=== PATIENT | male | born 1975 | race American Indian/Alaskan Native ===

== ENCOUNTER 2017-05-12 13:57 | Emergency (ER) | payer MEDICAID ==
[2017-05-12 14:07] VITALS: BMI 26.4
[2017-05-12 14:12] VITALS: BP 160/84; TEMP 97.8
[2017-05-12] MEDS ORDERED: Tmp-Smz 800 mg-160 mg DS Tab PO STA (14:33)
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
[2017-05-12 15:00] VITALS: PULSE 80; RESP 19; O2SAT 99
== END 2017-05-12 14:59 | disposition home or self-care (01) ==
LOC: ED 13:57
DX: L02.31 Cutaneous abscess of buttock (principal); F17.210 Nicotine dependence, cigarettes, uncomplicated

== ENCOUNTER 2017-10-15 05:40 | Emergency (ER) | payer MEDICAID ==
[2017-10-15 05:41] VITALS: BMI 26.4
[2017-10-15 05:51] VITALS: BP 146/80; PULSE 84; RESP 16; TEMP 98.1
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
[2017-10-15] MEDS ORDERED: Tmp-Smz 800 mg-160 mg DS Tab PO STA (06:00)
[2017-10-15 06:22] VITALS: O2SAT 98
== END 2017-10-15 06:21 | disposition home or self-care (01) ==
LOC: ED 05:40
DX: L03.116 Cellulitis of left lower limb (principal); F17.210 Nicotine dependence, cigarettes, uncomplicated

== ENCOUNTER 2018-01-08 20:12 | Emergency (ER) | payer MEDICAID ==
[2018-01-08 20:14] VITALS: BMI 26.4
[2018-01-08] MEDS ORDERED: cefTRIAXone (Rocephin) 250 mg Inj IM STA (21:08)
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
[2018-01-08] MEDS ORDERED: Lidocaine 1% 5ml Abboject ONE (21:24)
[2018-01-08 22:36] VITALS: BP 135/84; PULSE 82; RESP 18; O2SAT 100
== END 2018-01-08 21:40 | disposition home or self-care (01) ==
LOC: ED 20:12
DX: N34.2 Other urethritis (principal); F17.210 Nicotine dependence, cigarettes, uncomplicated
CPT/HCPCS: 87491; 87591; 96372; 99284; J0696

== ENCOUNTER 2018-07-07 23:55 | Emergency (ER) | payer MEDICAID ==
[2018-07-08 00:39] VITALS: BMI 28.4
[2018-07-08 00:42] VITALS: TEMP 97.8
[2018-07-08] MEDS ORDERED: cefTRIAXone (Rocephin) 250 mg Inj IM STA (00:53)
[2018-07-08 01:13] LABS: URINE BILIRUBIN NEGATIVE (NEGATIVE); URINE BLOOD NEGATIVE (NEGATIVE); URINE GLUCOSE (UA) NEGATIVE (NEGATIVE); URINE LEUKOCYTE ESTERASE SMALL Leu/uL (NEGATIVE); URINE PROTEIN NEGATIVE mg/dL (<30 mg/dL); URINE UROBILINOGEN 0.2 E.U./dL (<1 E.U./dL)
[2018-07-08 01:16] LABS: URINE APPEARANCE SL CLOUDY (CLEAR); URINE COLOR YELLOW (YELLOW)
[2018-07-08 01:54] LABS: URINE RBC 0 - 2 /hpf (0-2)
[2018-07-08 01:55] LABS: URINE BACTERIA OCC /hpf; URINE EPITHELIAL CELLS 0 - 2 /hpf (0-5)
[2018-07-08 02:12] VITALS: BP 128/86; PULSE 75; RESP 18; O2SAT 100
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
== END 2018-07-08 01:40 | disposition home or self-care (01) ==
LOC: ED 23:55
DX: A64 Unspecified sexually transmitted disease (principal)
CPT/HCPCS: 81001; 87086; 87491; 87591; 96372; 99283; J0696